=== PATIENT | female | born 1990 | race Caucasian/White ===

== ENCOUNTER 2022-04-27 14:26 | Inpatient (IN) ==
[2022-04-27] MEDS ORDERED: ceFOXitin 2 GM IVPREMIX 2 GM/50 ML BAG IVPB ONE (14:55)
[2022-04-27] MEDS ORDERED: Promethazine INJ(RESTRICTED) 25 MG/ML 1 ml VIAL IV PRN (14:55)
[2022-04-27] MEDS ORDERED: Sodium Citrate/Citric Acid LIQ 15 ML UDC PO ONE ×2 (14:55→19:00)
[2022-04-27] MEDS ORDERED: Nalbuphine 10 MG/ML 1 ML VIAL IV PRN (14:55)
[2022-04-27] MEDS ORDERED: Lactated Ringers 1000 ml BAG 1,000 ML IV ONE (14:55)
[2022-04-27] MEDS ORDERED: Buffered Lidocaine 1% SYRIN 1 ml INTRADERM ONE (14:55)
[2022-04-27] MEDS ORDERED: Lactated Ringers 1000 ml BAG 1,000 ML IV SCH ×2 (15:00→23:45)
[2022-04-27 15:25] LABS: ABS Eosinophils 0.3 10^3/ul (0-0.6); ABS Lymphocytes 1.9 10^3/ul (1.0-4.8); ABS Monocytes 0.8 10^3/ul (0-0.8); ABS Neutrophils 6.9 10^3/ul (1.5-7.7); Eosinophil % 3.5 %; Hematocrit 32 % (35-47); Hemoglobin 10.6 g/dL (12.0-16.0); Mean Corpuscular HGB Conc 33 g/dL (31-36); Mean Corpuscular Hemoglobin 27 pg (27-31); Mean Corpuscular Volume 81 fL (80-97); Mean Platelet Volume 8.3 fL (7.4-10.4); Platelet Count 247 10^3/uL (150-450); Red Blood Count 3.97 10^6 /uL (3.70-4.87); Red Cell Distribution Width 15 % (10-15); White Blood Count 9.9 10^3/uL (3.5-10.8)
[2022-04-27] MEDS ORDERED: Metoclopramide 5 MG/ML VIAL (10 mg) IV SLOW PU ONE (15:47)
[2022-04-27] MEDS ORDERED: Famotidine IV 10 MG/ML 2 ml VIAL (20 mg) IV SLOW PU ONE ×2 (15:49→19:00)
[2022-04-27 16:02] LABS: Albumin 3.1 g/dL (3.2-5.2); Calcium 8.9 mg/dL (8.6-10.3); Potassium 4.2 mmol/L (3.5-5.0); Total Bilirubin 0.4 mg/dL (0.2-1.0)
[2022-04-27 16:08] LABS: Total Protein 6.1 g/dL (6.4-8.9); eGFR CKD-EPI 127.1 (>60)
[2022-04-27 17:41] LABS: Urine Benzodiazepine Screen None Detected (None Detect); Urine Cannabinoids Screen None Detected (None Detect); Urine Opiates Screen None Detected (None Detect)
[2022-04-27] MEDS ORDERED: Morphine PF AMP (0.5MG/ML) 5 MG/10 ML AMP ONE (21:40)
[2022-04-27] MEDS ORDERED: Oxytocin 10 UNITS/ML 1 ML VIAL ONE (21:40)
[2022-04-27] MEDS ORDERED: Scopolamine 1 mg/72hr PATCH ONE (21:40)
[2022-04-27] MEDS ORDERED: Phenylephrine 40 mcg/mL 10mL (400mcg) SYRINGE ONE ×2 (21:40→22:44)
[2022-04-27] MEDS ORDERED: Acetaminophen IV 1 GM/100ML 1,000 MG/100 ML BAG IV ONE (22:39)
[2022-04-27] MEDS ORDERED: Naloxone 0.4 mg VIAL 0.4 mg/ml 1 ml VIAL IV PRN (22:51)
[2022-04-27] MEDS ORDERED: Ondansetron 4 mg VIAL 2 MG/ML 2 ml VIAL IV PRN ×2 (22:51→22:53)
[2022-04-27] MEDS ORDERED: fentaNYL 100 mcg/2 ml 50 MCG/ML VIAL IV PRN (22:51)
[2022-04-27] MEDS ORDERED: Naloxone 0.4 mg VIAL 0.4 mg/ml 1 ml VIAL IV PUSH PRN (22:53)
[2022-04-27] MEDS ORDERED: Metoclopramide 5 MG/ML VIAL (10 mg) IV PRN (22:53)
[2022-04-27] MEDS ORDERED: Acetaminophen IV 1 GM/100ML 1,000 MG/100 ML BAG IV PRN (22:53)
[2022-04-27] MEDS ORDERED: fentaNYL 100 mcg/2 ml 50 MCG/ML VIAL ONE (23:02)
[2022-04-27] MEDS ORDERED: Ondansetron 4 mg VIAL 2 MG/ML 2 ml VIAL ONE (23:03)
[2022-04-27] MEDS ORDERED: Dibucaine 1% OINT 28.35 GM TUBE PR PRN (23:36)
[2022-04-27] MEDS ORDERED: Glycerin ADULT 2.4 gm SUPP PR PRN (23:36)
[2022-04-27] MEDS ORDERED: Witch Hazel PAD JAR TOPICAL PRN (23:36)
[2022-04-27] MEDS ORDERED: Oxytocin in LR 20,000 MILLI.UNIT/1,000 ML BAG IV SCH (23:45)
[2022-04-27 23:58] LABS: Urine Appearance Clear; Urine Bilirubin Negative (Negative); Urine Blood 1+ (Negative); Urine Color Yellow; Urine Glucose Negative (Negative); Urine Ketones Negative (Negative); Urine Nitrite Negative (Negative); Urine Protein Negative (Negative); Urine Specific Gravity 1.019 (1.002-1.030); Urine Urobilinogen Negative (Negative)
[2022-04-28 00:03] LABS: Urine Bacteria Absent (Absent); Urine Red Blood Cell 3+(>10/hpf) (Absent); Urine Squamous Epithelial Cell Present (Absent); Urine White Blood Cell 1+(6-10/hpf) (Absent)
[2022-04-28 08:27] LABS: ABS Eosinophils 0.2 10^3/ul (0-0.6); ABS Lymphocytes 2.1 10^3/ul (1.0-4.8); ABS Monocytes 0.9 10^3/ul (0-0.8); ABS Neutrophils 9.1 10^3/ul (1.5-7.7); Eosinophil % 1.8 %; Hematocrit 31 % (35-47); Lymphocyte % 16.7 %; Mean Corpuscular HGB Conc 33 g/dL (31-36); Mean Corpuscular Hemoglobin 26 pg (27-31); Mean Corpuscular Volume 81 fL (80-97); Mean Platelet Volume 8.5 fL (7.4-10.4); Platelet Count 221 10^3/uL (150-450); Red Cell Distribution Width 15 % (10-15); White Blood Count 12.3 10^3/uL (3.5-10.8)
[2022-04-30 08:09] VITALS: BP 144/87
== END 2022-04-30 19:51 | disposition home or self-care (01) | DRG 540 ==
LOC: MCHOBOUT 14:26 → MCHOB 15:26
PROVIDERS: ADMIT Obstetrics & Gynecology; ATTEND Obstetrics & Gynecology